=== PATIENT | female | born 1935 | race Caucasian/White ===

== ENCOUNTER → 2017-06-30 | Outpatient (CLI) | payer MEDICARE, BC ==
[~2017-06-30] MED LIST: ALENDRONATE SOD70 M1 PO; ASPIRIN E.C. 8181 MG PO; CALCIUM W/VITAM1 TAB PO; CELEXA 20MG20 MG/TAB PO; CYANOCOBAL100 MCG/ML IM; FISH OIL CONC1000 MG PO; METOCLOPRAMIDE5 MG PO; MEVACOR; MIRALAX 17GM PK1 PKT PO; ONE DAILY1 TA1 PO; PREDNISONE 5MG5 MG PO; RANITIDINE300 MG PO; TRAVATAN 2.5 M2.5 M1 OU; VITAMIN D1000 IU PO; ZOLPIDEM10 MG PO
== END ==
LOC: MC.RAD 08:53
DX: Z12.31 Encounter for screening mammogram for malignant neoplasm of breast (principal)

== ENCOUNTER → 2017-06-30 | Outpatient (REF) ==
[2017-06-30 19:23] LABS: THYROID STIMULATING HORMONE 2.76 uIU/mL (0.465-4.680)
== END ==
LOC: ZLAB.WCH 18:10
PROVIDERS: Internal Medicine
DX: Z01.89 Encounter for other specified special examinations (principal)

== ENCOUNTER → 2018-04-19 | Outpatient (REF) | LOC: ZLAB.WCH 15:53 | DX: Z01.89 Encounter for other specified special examinations (principal) ==

== ENCOUNTER → 2018-09-09 | Outpatient (REF) | LOC: ZLAB.WCH 12:00 | DX: Z01.89 Encounter for other specified special examinations (principal) ==